=== PATIENT | female | born 1970 | race Caucasian/White ===

== ENCOUNTER 2020-01-29 15:21 | Emergency (ER) | payer OTHER ==
[~2020-01-29] VITALS: Ht 162.6 cm; Wt 69.8 kg
[~2020-01-29 15:21] MED LIST: ANTIVERT25 MG PO; BUTALB-APAP-CA1 EACH PO; IBUPROFEN 800800 M1 PO; PEPCID40 MG PO; ZOFRAN ODT4 MG PO
[2020-01-29] MEDS ORDERED: CIPROFLOXACIN500 M1 PO (15:59)
[2020-01-29] MEDS ORDERED: NORCO 5-325 TA1 EAC2 PO (15:59)
[2020-01-29 16:37] VITALS: BP 177/87
== END 2020-01-29 16:38 | disposition home or self-care (01) ==
LOC: M.ERS 15:21
DX: S91.331A Puncture wound without foreign body, right foot, initial encounter (principal); Z90.710 Acquired absence of both cervix and uterus; Z86.711 Personal history of pulmonary embolism; Z88.5 Allergy status to narcotic agent; W22.8XXA Striking against or struck by other objects, initial encounter; Y93.89 Activity, other specified; Y92.89 Other specified places as the place of occurrence of the external cause; Y99.8 Other external cause status